=== PATIENT | female | born 1990 | race Caucasian/White ===

== ENCOUNTER → 2021-03-28 | Outpatient (CLI) | payer BC | END | disposition home or self-care (01) | LOC: LABWHC1 09:30 | PROVIDERS: ATTEND Obstetrics & Gynecology | DX: O20.0 Threatened abortion (principal); Z3A.00 Weeks of gestation of pregnancy not specified | CPT/HCPCS: 36415; 84702; 86850; 86900; 86901 ==

== ENCOUNTER 2022-04-10 20:00 | Outpatient (CLI) | payer BC ==
[2022-04-10 21:03] VITALS: BP 127/76; PULSE 93; RESP 16; TEMP 97.3
--- NOTE | 2022-04-23 10:45 | P.MSEPDOC ---
Presenting Problems - Arrival Data Date of Arrival on Unit: 04/10/22 Time of Arrival on Unit: 20:00 Mode of Transport: Ambulatory - Complaint OB-Reason for Admission/Chief Complaint: Other Comment: left lower abdominal pain Medical History - Information : 1 Para: 0 Term: 0 : 0 Abortions: Spontaneous or Elective: 0 Number of Living Children: 0 - Gestational Age Gestational Age by MARK (wks/days): 35 Weeks and 6 Days Review of Systems - Review of Systems Constitutional: No problems Breast: No problems ENT: No problems Cardiovascular: No problems Respiratory: No problems Gastrointestinal: No problems Genitourinary: No problems Musculoskeletal: No problems Neurological: No problems Skin: No problems Vital Signs - Temperature Temperature: 97.3 F Temperature Source: Oral - Pulse Left Brachial Pulse Rate: 93 Pulse Assessment Method: Automatic Cuff - Respirations Respiratory Rate: 16 Oxygen Delivery Method: Room Air O2 Sat by Pulse Oximetry: 99 - Blood Pressure Right Arm Blood Pressure: 127/76 Blood Pressure Mean: 93 Blood Pressure Source: Automatic Cuff Medical Screen Scoring - Cervical Exam Membranes: Intact - Assessment - Baby A Baseline FHR: 120 Heart Rate - NICHD Category: Category I (Normal) NST: Reactive Physician Notification - Physician Notified Physician Notified Date: 04/10/22 Physician Notified Time: 20:33 Physician: Hailey Gonzalez Order Received: Yes (discharge) - Notification Comment Comment: Dr. Gonzalez called with report on patients complaint of left lower abdominal pain. cervical exam. closed/thick/high. reactive NST. Patient is not freddy. Orders received to. discharge home with labor precautions. Maternal Triage Index - Maternal Triage Index Presenting for scheduled procedure w/no complaint: No - Stat/Priority 1 Stat Priority 1: No - Urgent/Priority 2 Urgent Priority 2: No - Prompt/Priority 3 Prompt Priority 3: No - Non-Urgent/Priority 4 Non-Urgent Priority 4: Yes Criteria Met for Priority 4: constant left lower abdominal pain Disposition - Disposition OB Disposition: Discharge to home Discharge Date: 04/10/22 Discharge Time: 20:40 I agree with the RN Medical Screening Exam: Yes Case reviewed; plan agreed upon as documented in EMR&OBIX.: Yes Diagnosis: LEFT LOWER QUADRANT PAIN
== END 2022-04-10 20:40 ==
LOC: FBPOP 20:00
PROVIDERS: ATTEND Obstetrics & Gynecology
DX: O26.893 Other specified pregnancy related conditions, third trimester (principal); Z3A.35 35 weeks gestation of pregnancy; R10.32 Left lower quadrant pain
CPT/HCPCS: 59025; 99213

== ENCOUNTER 2022-04-26 09:20 | Outpatient (CLI) | payer BC ==
[2022-04-26] MEDS ORDERED: DEXTROSE 5%-LACTATED RINGERS 1,000 ML IV ONE (11:00)
[2022-04-26 11:17] LABS: Basophils % (A) 0 %; Eosinophils # (A) 0.1 k/uL (0-0.7); Eosinophils % (A) 1 %; HCT 36.6 % (34.0-46.0); HGB 12.9 gm/dL (11.4-16.0); Lymphocytes # (A) 0.5 k/uL (1.0-4.8); Lymphocytes % (A) 6 %; MCH 32.2 pg (25.0-35.0); MCHC 35.2 g/dL (31.0-37.0); MCV 91.5 fL (80.0-100.0); Mean Platelet Volume 9.9; Monocytes # (A) 0.2 k/uL (0-1.0); Monocytes % (A) 2 %; Neutrophils # (A) 7.8 k/uL (1.3-7.7); Neutrophils % (A) 89 %; Platelet Count 213 k/uL (150-450); RDW 14.5 % (11.5-15.5); WBC 8.7 k/uL (3.8-10.6)
[2022-04-26 11:30] LABS: African American GFR (CKD) >90 (>60 ml/min/1.73 sqM); Anion Gap 6 mmol/L; Blood Urea Nitrogen 9 mg/dL (7-17); Calcium 8.4 mg/dL (8.4-10.2); Carbon Dioxide 23 mmol/L (22-30); Chloride 104 mmol/L (98-107); Glucose 84 mg/dL (74-99); Non-African American GFR(CKD) >90 (>60 ml/min/1.73 sqM); Sodium 133 mmol/L (137-145)
[2022-04-26 12:37] VITALS: BP 138/79; PULSE 99; RESP 16; TEMP 97.6
--- NOTE | 2022-05-26 10:11 | P.MSEPDOC ---
Presenting Problems - Arrival Data Date of Arrival on Unit: 04/26/22 Time of Arrival on Unit: 09:26 Mode of Transport: Ambulatory - Complaint OB-Reason for Admission/Chief Complaint: Decreased Movement, Acute Nausea/Vomiting Medical History - Information : 1 Para: 0 Number of Living Children: 0 - Gestational Age Gestational Age by MARK (wks/days): 38 Weeks and 1 Days Review of Systems - Review of Systems Constitutional: No problems Breast: No problems ENT: No problems Cardiovascular: No problems Respiratory: No problems Gastrointestinal: No problems Genitourinary: No problems Musculoskeletal: No problems Neurological: No problems Skin: No problems Vital Signs - Temperature Temperature: 97.6 F Temperature Source: Oral - Pulse Right Sitting Brachial Pulse Rate: 99 Pulse Assessment Method: Automatic Cuff - Respirations Respiratory Rate: 16 Oxygen Delivery Method: Room Air O2 Sat by Pulse Oximetry: 97 - Blood Pressure Right Arm Sitting Blood Pressure: 138/79 Blood Pressure Mean: 98 Blood Pressure Source: Automatic Cuff Medical Screen Scoring - Cervical Exam Dilation (cm): 0 Effacement (%): 0 Station: 0 Membranes: Intact - Uterine Contractions Intensity: Absent - Assessment - Baby A Baseline FHR: 130 Heart Rate - NICHD Category: Category I (Normal) NST: Reactive Physician Notification - Physician Notified Physician Notified Date: 04/26/22 Physician Notified Time: 12:18 Physician: Fanta Valdez Order Received: Yes - Notification Comment Comment: dc Maternal Triage Index - Maternal Triage Index Presenting for scheduled procedure w/no complaint: No - Stat/Priority 1 Stat Priority 1: No - Urgent/Priority 2 Urgent Priority 2: No - Prompt/Priority 3 Prompt Priority 3: No - Non-Urgent/Priority 4 Non-Urgent Priority 4: Yes Criteria Met for Priority 4: N/V Disposition - Disposition OB Disposition: Physician follow up in office, Discharge to home Discharge Date: 04/26/22 Discharge Time: 12:30 I agree with the RN Medical Screening Exam: Yes Case reviewed; plan agreed upon as documented in EMR&OBIX.: Yes Diagnosis: DECREASED MOVEMENTS, THIRD TRIMESTER, FETUS 1
== END 2022-04-26 12:30 | disposition home or self-care (01) ==
LOC: FBPOP 09:20
PROVIDERS: ATTEND Obstetrics & Gynecology
DX: O36.8131 Decreased fetal movements, third trimester, fetus 1 (principal); Z3A.38 38 weeks gestation of pregnancy
CPT/HCPCS: 36415; 59025; 80048; 85025; 96360; 99214

== ENCOUNTER 2022-05-06 03:22 | Inpatient (IN) | payer BC ==
[2022-05-06] MEDS: LACTATED RINGERS 1,000 ML IV SCH ×5 (05:01→23:15)
[2022-05-06 05:11] LABS: Basophils # (A) 0.1 k/uL (0-0.2); Basophils % (A) 1 %; Eosinophils # (A) 0.1 k/uL (0-0.7); Eosinophils % (A) 1 %; HCT 35.6 % (34.0-46.0); HGB 12.5 gm/dL (11.4-16.0); Lymphocytes # (A) 1.8 k/uL (1.0-4.8); Lymphocytes % (A) 23 %; MCH 31.3 pg (25.0-35.0); MCHC 35.1 g/dL (31.0-37.0); MCV 89.3 fL (80.0-100.0); Mean Platelet Volume 9.5; Monocytes # (A) 0.4 k/uL (0-1.0); Monocytes % (A) 5 %; Neutrophils # (A) 5.2 k/uL (1.3-7.7); Neutrophils % (A) 67 %; Platelet Count 210 k/uL (150-450); RBC 3.99 m/uL (3.80-5.40); RDW 13.3 % (11.5-15.5); WBC 7.7 k/uL (3.8-10.6)
[2022-05-06 05:19] LABS: ALT 35 U/L (4-34); AST 35 U/L (14-36); African American GFR (CKD) >90 (>60 ml/min/1.73 sqM); Blood Urea Nitrogen 11 mg/dL (7-17); LDH 435 U/L (313-618); Magnesium 1.5 mg/dL (1.6-2.3); Non-African American GFR(CKD) >90 (>60 ml/min/1.73 sqM); Uric Acid 4.7 mg/dL (3.7-7.4)
[2022-05-06 05:45] LABS: INR 0.9 (<1.2); Partial Thromboplastin Time 23.5 sec (22.0-30.0); Prothrombin Time 9.5 sec (9.0-12.0)
[2022-05-06 05:56] LABS: Appearance,Urine Clear (Clear); Bilirubin,Urine Negative (Negative); Blood,Urine Negative (Negative); Color,Urine Light Yellow; Glucose,Urine (UA) Negative (Negative); Ketones,Urine Negative (Negative); Leukocyte Esterase,Urine Negative (Negative); Nitrite,Urine Negative (Negative); Protein,Urine Negative (Negative); Specific Gravity,Urine 1.007 (1.001-1.035); Urobilinogen,Urine <2.0 mg/dL (<2.0)
[2022-05-06] MEDS ORDERED: LIDOCAINE 0.5% (PF) 5 MG/ML (50 ML SDV) SQ PRN (06:00)
[2022-05-06] MEDS ORDERED: TERBUTALINE 1 MG/ML VIAL SQ PRN (06:00)
[2022-05-06] MEDS ORDERED: OXYTOCIN 30 UNITS/500 ML NS 30 UNIT in SALINE 1 500ML.BAG IV SCH ×2 (06:00→21:30)
[2022-05-06 06:07] LABS: Protein/Creatinine Ratio,Urine 0.382
--- NOTE | 2022-05-06 08:45 | P.HPOB ---
History of Present Illness H&P Date: 05/06/22 Chief Complaint: Contractions Ms. Wilde is a 31 year old at 39 weeks and 4 days with EDC of 05/09/2022 who presents to labor and delivery with regular contractions every 3- 5 minutes. The patient denies leakage of fluid, vaginal bleeding. She is feeling good movement. Obstetric history is significant for 1 early SAB that did not require D&C. Laboratory workup throughout shows blood type O negative, antibody screen negative, rubella immune, VDRL non-reactive, HBsAG negative, HIV negative, 1 hr GTT of 100, GBS negative. Past Medical History Past Medical History: No Reported History History of Any Multi-Drug Resistant Organisms: None Reported Past Surgical History: Appendectomy Past Anesthesia/Blood Transfusion Reactions: No Reported Reaction Past Psychological History: Anxiety, Depression Smoking Status: Never smoker Past Alcohol Use History: None Reported Past Drug Use History: None Reported Medications and Allergies Home Medications Medication Instructions Recorded Confirmed Type Vit No.179/Iron/Folic 1 each PO DAILY 04/10/22 05/06/22 History [ Tablet] RX: Aspirin 1 tab PO DAILY 05/06/22 05/06/22 History Allergies Allergy/AdvReac Type Severity Reaction Status Date / Time No Known Allergies Allergy Verified 04/26/22 09:36 Exam Vital Signs Temp Pulse Resp BP Pulse Ox 05/06/22 06:41 96.2 F L 70 16 135/89 98 05/06/22 03:24 96.8 F L 67 16 154/88 98 Intake and Output 05/05/22 05/06/22 05/06/22 22:59 06:59 14:59 Other: Weight 99.79 kg Focused exam is performed. This is a healthy-appearing gravid woman in no apparent distress. The patient is 1 centimeter dilated, 80% effaced, and -2 station. Of note, this is change from a prior exam done by her RN during which she was closed, thick, and high. Results Result Diagrams: 05/06/22 04:54 05/06/22 04:54 Abnormal Lab Results - Last 24 Hours (Table) 05/06/22 Range/Units 04:54 Magnesium 1.5 L (1.6-2.3) mg/dL ALT 35 H (4-34) U/L Assessment and Plan Assessment: 31 year old at 39 weeks and 4 days in early labor, found to have pre- eclampsia without severe features - BPs have been mild range on two occasions in the office and were again elevated today in triage. PIH labs were significant for urine P:C ratio of 0.3. Plan: - Admit, NPO, mIVF - Augementation of labor with oxytocin per protocol - IV nitrous oxide at this time prn, will avoid IV stadol for pain given low baseline - Continuous EFM Time with Patient: Greater than 30
[2022-05-06] MEDS: BUTORPHANOL 1 MG/ML 1 ML VIAL IV PRN ×2 (12:33→14:25)
[2022-05-06] MEDS ORDERED: ROPIVACAINE 5 MG/ML 20 ML AMPULE ONE (14:52)
[2022-05-06] MEDS ORDERED: SODIUM CHLORIDE 0.9% 100 ML BAG ONE (14:52)
[2022-05-06] MEDS ORDERED: fentaNYL (PF) 50 MCG/ML 5 ML AMP ONE (14:52)
[2022-05-06] MEDS ORDERED: METHYLERGONOVINE 0.2 MG/ML 1 ML AMP IM ONE (19:09)
--- NOTE | 2022-05-06 20:01 | P.PROBDLV ---
Vaginal Delivery Note - . Vaginal Delivery Note: Procedure: Vacuum-Assisted Vaginal Delivery Estimated Blood Loss: 400cc Complications: None Findings: 1. Live male infant with Apgars of 8 and 9. Weight 3625 grams. 2. Placenta delivered with assistance, intact, with a three-vessel cord. Mrs Wilde is a 37-year-old at 39 weeks and 4 days who was admitted for augmentation of labor for pre-eclampsia without severe features. When she was admitted, her cervix was 1 cm dilated with 80% effacement. The baby had a -3 station. She had regular contractions. The heart rate reactive and reassuring. She was started on Oxytocin for labor augmentation and labored quite rapidly. Artificial rupture of membranes was undertaken with clear fluid. She received an epidural for anesthesia. She reached complete dilation at 1640. The baby was at a +1 station when the patient began pushing. She continued to push until the fetus reached +3 station. During pushing, the heart tracing showed decelerations into the 80s with poor recovery in between contractions. Because of this, we recommended a vacuum delivery for the baby. The patient agreed. The baby's head was confirmed to be in the occiput anterior presentation with 100% effacement and +3 station. The vacuum was placed and the correct placement in front of the posterior fontanelle was confirmed digitally. With the patient's next contraction, the vacuum was inflated and a gentle downward pressure was used to assist with brining the baby's head to a +3 station. The head was +4 station and the vacuum was removed. The head was delivered without difficulty over an intact perineum. There was one nuchal cord. Shoulders followed by body were delivered without difficulty at 1903. The baby's mouth and nose were bulb suctioned. The cord was clamped x2 and cut. The infant was placed on the maternal abdomen. Placenta delivered whole with gentle cord traction. Oxytocin was started to facilitate uterine tone. Uterine fundus firm and bleeding minimal upon fundal massage. Perineal inspection revealed first degree laceration requiring repair. Repair was performed with 3-0 Vicryl in the usual fashion. Patient stable .
[2022-05-06] MEDS ORDERED: HYDROCORTISONE 2.5% RECTAL CREAM 30 GM TUBE RECTAL PRN (21:30)
[2022-05-06] MEDS ORDERED: Rhogam IMMUNE GLOBULIN 1,500 UNIT/1 ML IM ONE (21:30)
[2022-05-06] MEDS ORDERED: IBUPROFEN 600 MG TAB PO PRN (21:30)
[2022-05-06] MEDS ORDERED: diphenhydrAMINE 50 MG/ML 1 ML VIAL IVP PRN ×2 (21:30)
[2022-05-06] MEDS ORDERED: SIMETHICONE 80 MG CHEWABLE PO PRN (21:30)
[2022-05-06] MEDS ORDERED: diphenhydrAMINE 25 MG CAP PO PRN (21:30)
[2022-05-06] MEDS ORDERED: BENZOCAINE/MENTHOL SPRAY 1 GM/SPRAY AEROSOL TOPICAL PRN (21:30)
[2022-05-06] MEDS ORDERED: diphenhydrAMINE 50 MG CAP PO PRN (21:30)
[2022-05-06] MEDS ORDERED: ZOLPIDEM 5 MG TAB PO PRN (21:30)
[2022-05-06] MEDS ORDERED: LANOLIN CREAM 5 GM TUBE TOPICAL PRN (21:30)
[2022-05-06] MEDS: ACETAMINOPHEN TAB 325 MG TAB PO SCH (22:24)
[2022-05-07] MEDS: ACETAMINOPHEN TAB 325 MG TAB PO SCH ×2 (04:15→16:21)
[2022-05-07 07:14] LABS: Basophils % (A) 0 %; Eosinophils % (A) 0 %; HCT 30.9 % (34.0-46.0); HGB 11.2 gm/dL (11.4-16.0); Lymphocytes # (A) 1.4 k/uL (1.0-4.8); Lymphocytes % (A) 11 %; MCHC 36.3 g/dL (31.0-37.0); Monocytes # (A) 0.6 k/uL (0-1.0); Monocytes % (A) 4 %; Neutrophils # (A) 10.7 k/uL (1.3-7.7); Neutrophils % (A) 83 %; Platelet Count 195 k/uL (150-450); RBC 3.39 m/uL (3.80-5.40); RDW 12.9 % (11.5-15.5); WBC 12.9 k/uL (3.8-10.6)
[2022-05-07] MEDS ORDERED: SENNOSIDES-DOCUSATE SODIUM 1 EACH TAB PO SCH (08:00)
--- NOTE | 2022-05-07 11:49 | P.PNOBGVD ---
Subjective - Subjective Principal diagnosis: Normal Vaginal Delivery Interval history: The patient is doing well this morning and had no acute events overnight. She has no complaints this morning. She reports minimal lochia, passing flatus, voiding without difficulty, ambulating, and eating/drinking without nausea or vomiting. She is her infant without difficulty. She denies chest pain, shortness of breathing, fevers, or chills overnight. She denies pain or swelling in the legs. Patient reports: Reports appetite normal, Reports voiding normally, Reports pain well controlled, Reports ambulating normally [place]: doing well, nursing well Objective - Latest Vital Signs Latest vital signs: Vital Signs Temp Pulse Resp BP Pulse Ox 05/07/22 04:00 98.4 F 88 14 128/81 98 05/07/22 00:00 97.9 F 91 14 124/77 97 05/06/22 21:13 87 16 124/74 99 05/06/22 20:43 97.7 F 76 14 122/76 99 05/06/22 20:13 78 14 111/87 100 05/06/22 19:58 97.7 F 86 16 132/76 99 05/06/22 19:43 97.6 F 77 16 110/65 98 05/06/22 19:28 97.6 F 81 16 113/65 98 05/06/22 19:13 97.6 F 108 H 16 131/79 Intake and Output 05/06/22 05/07/22 05/07/22 22:59 06:59 14:59 Intake Total 191.333 Output Total 667 Balance -475.667 Intake: Intake, IV Titration 191.333 Amount Oxytocin 30 Units/500 ml 191.333 Ns 30 unit In Saline 1 500ml.bag @ Per Protocol IV .Q0M [facility] Rx#:[id number] Output: Estimated Blood Loss 400 Output, Quantitative 267 Blood Loss Other: # Voids 1 1 - Exam Extremities: Present: normal Abdomen: Present: normal appearance, soft Uterus: Present: normal, firm - Labs Labs: Abnormal Lab Results - Last 24 Hours (Table) 05/07/22 Range/Units 06:31 WBC 12.9 H (3.8-10.6) k/uL RBC 3.39 L (3.80-5.40) m/uL Hgb 11.2 L (11.4-16.0) gm/dL Hct 30.9 L (34.0-46.0) % Neutrophils # 10.7 H (1.3-7.7) k/uL Assessment and Plan Assessment: 31 year old now PPD#1 s/p normal vaginal delivery for viable male , complicated by pre-eclampsia without severe features Plan: 1. . Patient meeting all milestones appropriately. 2. Preeclampsia without severe features. Blood pressures have been normotensive to mild range, all <150/90. Continue to monitor. 3. Male infant. Doing well, nursing well, at the bedside. Now s/p circumcision. 4. contraception. Discussed pelvic rest for 6 weeks and then that our recommendation is to make a plan for contraception. Patient is considering and will decide at her 6 week appointment. Dispo: Discharge to home this evening if blood pressures remain <150/90
--- NOTE | 2022-05-07 11:58 | P.DS ---
Providers Date of admission: 05/06/22 06:08 Expected date of discharge: 05/07/22 Attending physician: Fanta Valdez Primary care physician: Stated None Hospital Course: 31 y/o now who presented to L&D in labor and with mild-range blood pressures. She was noted to have other mild-range blood pressures in the office. PIH labs were drawn and the P:C ratio was 0.3. Preeclampsia without severe features was diagnosed and the patient was admitted for augmentation of labor. Oxytocin was started and AROM was undertaken for clear fluid. The patient progressed through the first stage of labor quickly. She was not an effective pusher once the head reached +3 station and there were heart rate decelerations into the 80s. The decision was made to use an outlet vacuum to assist with delivery. The infant was born without any complications. The patient has a first degree laceration which was repaired in the usual fashion. She met all milestones appropriately and all blood pressures have been normotensive. She will go home after 24 hours if blood pressures remain <150/90. She will follow up in the office in 1 week for blood pressure check with Dr. Valdez. Assessment: 31 y/o day #1 s/p NVD, complicated by preeclampsia without severe features Patient Condition at Discharge: Good Plan - Discharge Summary Discharge Rx Participant: No New Discharge Prescriptions: New Ibuprofen 800 mg PO Q8H PRN #20 tab PRN Reason: Mild Pain (Scale 1 To 3) Acetaminophen Tab [Tylenol] 650 mg PO Q6H PRN #20 tab PRN Reason: Mild Pain (Scale 1 To 3) No Action Vit No.179/Iron/Folic [ Tablet] 1 each PO DAILY Aspirin 1 tab PO DAILY Discharge Medication List Vit No.179/Iron/Folic [ Tablet] 1 each PO DAILY 04/10/22 [History] Aspirin 1 tab PO DAILY 05/06/22 [History] Acetaminophen Tab [Tylenol] 650 mg PO Q6H PRN #20 tab 05/07/22 [Rx] Ibuprofen 800 mg PO Q8H PRN #20 tab 05/07/22 [Rx] Follow up Appointment(s)/Referral(s): Fanta Valdez MD [STAFF PHYSICIAN] - 1 Week (Blood pressure check) Patient Instructions/Handouts: Depression (DC), Perineal Care (DC), Caring for Your Baby (DC), Your Baby (DC), Expression, Collection and Storage of Breast Milk (DC), and Nipple Soreness (DC), How to Increase Your Milk Supply (DC), How to Tell if Your Baby is Getting Enough Breast Milk (DC), Bleeding (DC), Vaginal Delivery (DC) Activity/Diet/Wound Care/Special Instructions: Activity as tolerated. Pelvic rest for 6 weeks. Discharge Disposition: HOME SELF-CARE
[2022-05-07 13:15] VITALS: RESP 16
[2022-05-07 18:44] VITALS: BP 119/78; PULSE 92; TEMP 98.2
== END 2022-05-07 20:50 | disposition home or self-care (01) | DRG 807 ==
LOC: FBPOP 03:22 → 4FBP 06:08
PROVIDERS: ADMIT Obstetrics & Gynecology; ATTEND Obstetrics & Gynecology
PROC: 10907ZC Drainage of Amniotic Fluid, Therapeutic from Products of Conception, Via Natural or Artificial Opening (ICD-10-PCS; principal; 2022-05-06)
PROC: 0HQ9XZZ Repair Perineum Skin, External Approach (ICD-10-PCS; 2022-05-06)
PROC: 10D07Z6 Extraction of Products of Conception, Vacuum, Via Natural or Artificial Opening (ICD-10-PCS; 2022-05-06)
DX: O14.04 Mild to moderate pre-eclampsia, complicating childbirth (principal); Z37.0 Single live birth; O69.81X0 Labor and delivery complicated by cord around neck, without compression, not applicable or unspecified; O70.0 First degree perineal laceration during delivery; Z3A.39 39 weeks gestation of pregnancy; Z79.82 Long term (current) use of aspirin
CPT/HCPCS: 59025; 81003; 82565; 82570; 83615; 83735; 84112; 84156; 84450; 84460; 84520; 84550; 85025; 85384; 85461; 85610; 85730; 86850; 86900; 86901; 96360; 96361; 99213

== ENCOUNTER 2023-09-05 06:00 | Inpatient (IN) | payer BC ==
[2023-09-05] MEDS ORDERED: TERBUTALINE 1 MG/ML VIAL SQ PRN (06:23)
[2023-09-05] MEDS ORDERED: CARBOPROST TROMETHAMINE 250 MCG/ML 1 ML AMP IM PRN (06:23)
[2023-09-05] MEDS ORDERED: LIDOCAINE 0.5% (PF) 5 MG/ML (50 ML SDV) SQ PRN (06:23)
[2023-09-05] MEDS ORDERED: OXYTOCIN 10 UNIT/ML 1 ML VIAL IM PRN (06:23)
[2023-09-05] MEDS ORDERED: miSOPROStoL 200 MCG TAB PO PRN (06:23)
[2023-09-05] MEDS ORDERED: TRANEXAMIC 1,000 MG/100ML-NACL 1,000 MG in EMPTY BAG 1 BAG IV PRN (06:23)
[2023-09-05] MEDS ORDERED: METHYLERGONOVINE 0.2 MG/ML 1 ML AMP IM PRN (06:23)
[2023-09-05] MEDS: LACTATED RINGERS 1,000 ML IV SCH (06:29)
[2023-09-05 06:45] LABS: Basophils # (A) 0.1 k/uL (0-0.2); Basophils % (A) 1 %; Eosinophils # (A) 0.1 k/uL (0-0.7); Eosinophils % (A) 1 %; HCT 34.9 % (34.0-46.0); Lymphocytes # (A) 2.7 k/uL (1.0-4.8); Lymphocytes % (A) 32 %; MCH 32.1 pg (25.0-35.0); MCHC 34.3 g/dL (31.0-37.0); MCV 93.4 fL (80.0-100.0); Mean Platelet Volume 8.6; Monocytes # (A) 0.6 k/uL (0-1.0); Monocytes % (A) 7 %; Neutrophils # (A) 4.8 k/uL (1.3-7.7); Neutrophils % (A) 57 %; Platelet Count 186 k/uL (150-450); RBC 3.74 m/uL (3.80-5.40); RDW 13.2 % (11.5-15.5); WBC 8.4 k/uL (3.8-10.6)
[2023-09-05] MEDS: OXYTOCIN 30 UNITS/500 ML NS 30 UNIT in SALINE 1 500ML.BAG IV SCH (06:50)
--- NOTE | 2023-09-05 08:54 | P.HPOB ---
History of Present Illness H&P Date: 09/05/23 Chief Complaint: Elective induction of labor Ms. Wilde is a 32 year old now at 39 weeks and 0 days with EDC of 09/12/23 who presents for elective induction of labor. The has been essentially uncomplicated. The fetus is estimated in the 56%ile based on a 32 w [place] growth US. Obstetric history: 1 FTVD complicated by pre-eclampsia without severe features work-up: blood type O negative, antibody screen negative (s/p rhogam 06/20/23), rubella immune, VDRL non-reactive, HBsAg negative, HIV negative, HCV Ab negative, gonorrhea negative, chlamydia negative, 1 hour GTT negative, GBS negative. s/p flu vaccine, s/p TDap Maternal past medical history: rheumatoid arthritis, depression Past Medical History Past Medical History: No Reported History History of Any Multi-Drug Resistant Organisms: None Reported Past Surgical History: Appendectomy Past Anesthesia/Blood Transfusion Reactions: No Reported Reaction Past Psychological History: Anxiety, Depression Smoking Status: Never smoker Past Alcohol Use History: None Reported Past Drug Use History: None Reported Medications and Allergies Home Medications Medication Instructions Recorded Confirmed Type Vit No.179/Iron/Folic 1 each PO DAILY 04/10/22 09/05/23 History [ Tablet] Aspirin 1 tab PO DAILY 05/06/22 05/06/22 History Hydroxychloroquine Sulfate 200 mg PO 09/05/23 History [Plaquenil] Allergies Allergy/AdvReac Type Severity Reaction Status Date / Time No Known Allergies Allergy Verified 09/05/23 06:21 Exam Intake and Output 09/04/23 09/05/23 09/05/23 22:59 06:59 14:59 Other: Weight 99.79 kg Focused physical exam is performed. This is a healthy-appearing in no apparent distress. Breathing is non-labored. Abdomen is gravid and non-tender. Cervical exam is 2 cm, 50 effacement, -3 station. AROM is undertaken with clear fluid noted. Extremities non-tender and non-edematous. heart tones are Category I and tocometer is graphing contractions every 2-4 minutes. Results Result Diagrams: 09/05/23 06:27 Abnormal Lab Results - Last 24 Hours (Table) 09/05/23 Range/Units 06:27 RBC 3.74 L (3.80-5.40) m/uL Assessment and Plan Assessment: 32 at 39 weeks and 0 days here for elective induction of labor Plan: Admit, clear liquid diet, pitocin per protocol, s/p AROM, epidural prn, continuous EFM and tocometer, close monitoring of patient.
[2023-09-05] MEDS ORDERED: HYDROCORTISONE 2.5% RECTAL CREAM 30 GM TUBE RECTAL PRN (19:20)
[2023-09-05] MEDS ORDERED: BENZOCAINE/MENTHOL SPRAY 1 GM/SPRAY AEROSOL TOPICAL PRN (19:20)
[2023-09-05] MEDS ORDERED: diphenhydrAMINE 50 MG CAP PO PRN (19:20)
[2023-09-05] MEDS ORDERED: diphenhydrAMINE 50 MG/ML 1 ML VIAL IVP PRN ×2 (19:20)
[2023-09-05] MEDS ORDERED: ZOLPIDEM 5 MG TAB PO PRN (19:20)
[2023-09-05] MEDS ORDERED: LANOLIN CREAM 1 GM TUBE TOPICAL PRN (19:20)
[2023-09-05] MEDS ORDERED: diphenhydrAMINE 25 MG CAP PO PRN (19:20)
--- NOTE | 2023-09-05 19:20 | P.PROBDLV ---
Vaginal Delivery Note - . Vaginal Delivery Note: DATE OF SERVICE: 09/05/2023 PROCEDURE: Normal Vaginal Delivery ATTENDING: Dr. Celi Guillen MD ESTIMATED BLOOD LOSS: 400 mL FINDINGS: VFI, Apgars 9/9. Weight 8#1oz (3635 grams) PROCEDURE: Ms. Wilde is a 32 year old at 39 weeks presenting to labor and delivery for elective induction of labor. The has been essentially uncomplicated. For further details, please review the admitting H&P. Pitocin was started per protocol. AROM was undertaken at 825 revealing clear amniotic fluid. The patient received epidural anesthesia per her request. The patient was completely dilated at 1832. She pushed effectively until the head reached a crown. With the next push, the fetus delivered, followed by anterior and posterior shoulder with the remainder of the body. A viable female infant was delivered at 1902. The infant was placed on the maternal abdomen and bulb suctioned. The infant was noted to be spontaneously crying. Cord was clamped and cut after a 30-second delay. The infant was handed off to the pediatric team. Placenta was delivered whole with gentle cord traction at 1905. Oxytocin was started to facilitate uterine tone. Uterine fundus was found to be firm and below the umbilicus upon fundal massage. Bleeding was brisk, so the oxytocin was administered at the bolus rate and aggressive bimanual massage was continued. The bleeding was noted to be minimal at this time. Thorough examination of the cervix, vagina, periurethral area, and perineum revealed no lacerations. The patient is stable and allowed to begin the bonding process.
[2023-09-05] MEDS: Rhogam IMMUNE GLOBULIN 1,500 UNIT/1 ML IM ONE (21:52)
[2023-09-05] MEDS: SENNOSIDES-DOCUSATE SODIUM 1 EACH TAB PO SCH (22:46)
[2023-09-06] MEDS: IBUPROFEN 600 MG TAB PO PRN (00:52)
[2023-09-06] MEDS: ACETAMINOPHEN TAB 325 MG TAB PO PRN (04:17)
[2023-09-06 07:07] LABS: Basophils # (A) 0.1 k/uL (0-0.2); Basophils % (A) 0 %; Eosinophils # (A) 0.1 k/uL (0-0.7); Eosinophils % (A) 1 %; HCT 28.4 % (34.0-46.0); HGB 10.5 gm/dL (11.4-16.0); Lymphocytes # (A) 2.1 k/uL (1.0-4.8); Lymphocytes % (A) 18 %; MCH 34.7 pg (25.0-35.0); MCHC 36.8 g/dL (31.0-37.0); MCV 94.3 fL (80.0-100.0); Mean Platelet Volume 9.9; Monocytes # (A) 0.6 k/uL (0-1.0); Monocytes % (A) 5 %; Neutrophils # (A) 8.8 k/uL (1.3-7.7); Neutrophils % (A) 75 %; Platelet Count 131 k/uL (150-450); RBC 3.02 m/uL (3.80-5.40); RDW 13.6 % (11.5-15.5); WBC 11.8 k/uL (3.8-10.6)
[2023-09-06 08:28] VITALS: PULSE 93
--- NOTE | 2023-09-06 08:28 | P.DS ---
Providers Date of admission: 09/05/23 06:09 Expected date of discharge: 09/06/23 Attending physician: Celi Guillen MD Primary care physician: Stated None Hospital Course: Ms. Wilde is a 32 year old now PPD#1 s/p normal vaginal delivery after elective induction of labor at 39 weeks. Labor and delivery were uncomplicated. The patient is doing well this morning and had no acute events overnight. She has no complaints this morning. She reports minimal lochia, passing flatus, voiding without difficulty, ambulating, and eating/drinking without nausea or vomiting. Infant doing well at bedside, is going well. She denies chest pain, shortness of breathing, fevers, or chills overnight. She denies pain or swelling in the legs. restrictions are reviewed with the patient including pelvic rest for 6 weeks. The patient is encouraged to call the office if she experiences any heavy bleeding, foul-smelling discharge, breast complaints, or any if she has any other concerns. She will follow up in the of community health in 6 weeks for postoperative exam. She will go home with Motrin and Tylenol as needed for pain. All questions are answered. Assessment: 32 year old now PPD#2 s/p normal vaginal delivery Plan - Discharge Summary New Discharge Prescriptions: New Ibuprofen [Motrin] 600 mg PO Q6HR PRN #30 tab PRN Reason: Mild Pain (Scale 1 To 3) Acetaminophen Tab [Tylenol] 650 mg PO Q6H PRN #30 tab PRN Reason: Mild Pain (Scale 1 To 3) No Action Vit No.179/Iron/Folic [ Tablet] 1 each PO DAILY Aspirin 1 tab PO DAILY Hydroxychloroquine Sulfate [Plaquenil] 200 mg PO Discharge Medication List Vit No.179/Iron/Folic [ Tablet] 1 each PO DAILY 04/10/22 [History] Aspirin 1 tab PO DAILY 05/06/22 [History] Hydroxychloroquine Sulfate [Plaquenil] 200 mg PO 09/05/23 [History] Acetaminophen Tab [Tylenol] 650 mg PO Q6H PRN #30 tab 09/06/23 [Rx] Ibuprofen [Motrin] 600 mg PO Q6HR PRN #30 tab 09/06/23 [Rx] Follow up Appointment(s)/Referral(s): Celi Guillen MD [STAFF PHYSICIAN] - 6 Weeks Activity/Diet/Wound Care/Special Instructions: Instructions 1. Do not begin any exercise program for 3 weeks. 2. Do not resume sexual relations for 6 weeks or longer if uncomfortable. 3. You may take tub baths or showers at any time. 4. You may use tampons if desired after 6 weeks. 5. Keep any areas repaired with stitches clean and dry. 6. If you are not nursing, wear a good fitting, supportive bra during the day and limit fluid intake for at least 1 week to prevent breast engorgement. 7. Call the office, , within the next week to make appointment for your 6 week checkup if it has not already been made. 8. Report any of the following occurrences to the doctor promptly: a. Heavy, excessive bleeding b. Chills, fever c. Burning or frequency of urination d. Pain or redness and breasts if nursing e. Increasing pain or swelling of vulva (stitches). In addition to the above instructions, the following additional should be followed: 1. No heavy lifting or straining (exercising) until after 6 week checkup. 2. Keep abdominal incision clean and dry: You may wear a dressing if more comfortable. 3. Make office appointment for 2 weeks after delivery date. Discharge Disposition: HOME SELF-CARE
[2023-09-06] MEDS: SIMETHICONE 80 MG CHEWABLE PO PRN (14:56)
[2023-09-06 16:37] VITALS: BP 117/72; RESP 16; TEMP 97.6
== END 2023-09-06 19:12 | disposition home or self-care (01) | DRG 807 ==
LOC: 4FBP 06:09
PROVIDERS: ADMIT Obstetrics & Gynecology; ATTEND Obstetrics & Gynecology
PROC: 10907ZC Drainage of Amniotic Fluid, Therapeutic from Products of Conception, Via Natural or Artificial Opening (ICD-10-PCS; principal; 2023-09-05)
PROC: 3E0234Z Introduction of Serum, Toxoid and Vaccine into Muscle, Percutaneous Approach (ICD-10-PCS; principal; 2023-09-05)
PROC: 3E033VJ Introduction of Other Hormone into Peripheral Vein, Percutaneous Approach (ICD-10-PCS; principal; 2023-09-05)
PROC: 10E0XZZ Delivery of Products of Conception, External Approach (ICD-10-PCS; principal; 2023-09-05)
DX: O26.893 Other specified pregnancy related conditions, third trimester (principal); O99.344 Other mental disorders complicating childbirth; O99.892 Other specified diseases and conditions complicating childbirth; F41.9 Anxiety disorder, unspecified; F32.A Depression, unspecified; M06.9 Rheumatoid arthritis, unspecified; Z67.41 Type O blood, Rh negative; Z79.899 Other long term (current) drug therapy; Z79.82 Long term (current) use of aspirin; Z3A.39 39 weeks gestation of pregnancy; Z37.0 Single live birth
CPT/HCPCS: 85025; 85461; 86850; 86870; 86880; 86900; 86901